=== PATIENT | male | born 1995 | race Caucasian/White ===

== ENCOUNTER → 2017-05-28 | Outpatient (CLI) | payer OTHER | LOC: LAB 16:15 | DX: R10.13 Epigastric pain (principal) ==

== ENCOUNTER → 2017-06-05 | Outpatient (CLI) | payer OTHER | LOC: RAD 10:44 | DX: R10.13 Epigastric pain (principal) ==

== ENCOUNTER → 2020-12-13 | Outpatient (CLI) | payer OTHER ==
[2020-12-13 14:08] LABS: EOS % 0.1 % (0.0-4.0); HEMATOCRIT 47.6 % (42.0-52.0); HEMOGLOBIN 15.6 g/dL (13.5-18.0); LYMPH# 1.2 (1.50-4.00); MEAN CELL VOLUME 81 fl (78-100); MEAN CORPUSCULAR HEMOGLOBIN 26 pg (27-31); MEAN CORPUSCULAR HGB CONC 33 g/dL (33-37); MEAN PLATELET VOLUME 9.6 fl (7.4-10.4); MONO # 0.5 (0.20-0.80); NEU # 6.8 (1.40-6.50); PLATELET COUNT 254 K/mm3 (130-400); RED BLOOD COUNT 5.91 M/mm3 (4.20-5.60); WHITE BLOOD COUNT 8.5 K/mm3 (4.8-10.8)
[2020-12-13 14:14] LABS: ALBUMIN 4.5 g/dL (3.5-5.0); POTASSIUM 4.1 mmol/L (3.5-5.1); URINE APPEARANCE CLEAR; URINE COLOR YELLOW
[2020-12-13 14:15] LABS: CALCIUM 9.3 mg/dL (8.3-10.5); URINE BILIRUBIN NEGATIVE (NEGATIVE); URINE BLOOD NEGATIVE (NEGATIVE); URINE GLUCOSE NEGATIVE (NEGATIVE); URINE KETONE NEGATIVE (NEGATIVE); URINE LEUKOCYTE ESTERASE NEGATIVE (NEGATIVE); URINE MUCUS PRESENT (NOT PRESENT); URINE NITRATE NEGATIVE (NEGATIVE); URINE PROTEIN(semi-quant) 1+ mg/dL (NEGATIVE); URINE UROBILINOGEN NORMAL (NORMAL); URINE WBC 0-1 /hpf (0-3)
[2020-12-13 14:16] LABS: TOTAL PROTEIN 7.9 g/dL (6.4-8.3)
== END ==
LOC: LAB 13:50
PROVIDERS: Nurse Practitioner
DX: R10.9 Unspecified abdominal pain (principal)